=== PATIENT | female | born 2005 | race Caucasian/White ===

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

== ENCOUNTER 2024-06-11 07:57 | Emergency (ER) | payer OTHER ==
[2024-06-11 08:01] VITALS: RESP 18
--- NOTE | 2024-06-11 08:39 | ED ---
General Adult HPI - General Chief complaint: Upper Respiratory Infection Stated complaint: vomiting,cough Time Seen by Provider: 06/11/24 08:33 Source: patient, RN notes reviewed, old records reviewed Mode of arrival: ambulatory Limitations: no limitations - History of Present Illness Initial comments: 18-year-old female approximately 29 weeks gestation presenting to the ER for evaluation of sore throat and nausea. Patient reports since Friday she has been feeling nauseous with multiple episodes of vomiting. Throughout the week she has been unable to keep food or liquids down. She also was endorsing a sore throat and congestion. Patient states last night she was having difficulty keeping water down which prompted emergency department visit. She denies any coffee-ground emesis or hematemesis. She has tried which she believes is nuba-iir-finospv aspirin as instructed by [facility] without relief of symptoms. She denies any dizziness, lightheadedness, abdominal pain/cramping, back pain, vaginal bleeding or discharge. No chest pain, shortness of breath, wheezing, difficulty breathing or other complaints at this time. Patient is follow-up with Dr. Gipson. - Related Data Home Medications Medication Instructions Recorded Confirmed Labetalol [Trandate] 100 mg PO BID 09/14/23 09/14/23 Allergies Allergy/AdvReac Type Severity Reaction Status Date / Time No Known Allergies Allergy Verified 06/11/24 08:01 Review of Systems ROS Statement: Those systems with pertinent positive or pertinent negative responses have been documented in the HPI. ROS Other: All systems not noted in ROS Statement are negative. Past Medical History Past Medical History: No Reported History Additional Past Medical History / Comment(s): Obstetric history: This patient's first and she had care with Dr. huong carrera. Blood type is O+, antibodies negative, rubella immune, hepatitis B negative, GBS positive, HIV nonreactive History of Any Multi-Drug Resistant Organisms: None Reported Past Surgical History: Orthopedic Surgery Additional Past Surgical History / Comment(s): lt arm Past Psychological History: No Psychological Hx Reported Smoking Status: Never smoker Past Alcohol Use History: None Reported Past Drug Use History: Marijuana General Exam Limitations: no limitations General appearance: alert, in no apparent distress ENT exam: Present: normal exam, mucous membranes moist (Mild erythema oropharynx), TM's normal bilaterally Neck exam: Present: normal inspection. Absent: tenderness, meningismus, lymphadenopathy Respiratory exam: Present: normal lung sounds bilaterally. Absent: respiratory distress, wheezes, rales, rhonchi, stridor Cardiovascular Exam: Present: regular rate, normal rhythm, normal heart sounds. Absent: systolic murmur, diastolic murmur, rubs, gallop, clicks GI/Abdominal exam: Present: soft, normal bowel sounds, other (Gravid abdomen. No focal tenderness). Absent: distended, tenderness, guarding, rebound, rigid Neurological exam: Present: alert, oriented X3, CN II-XII intact Skin exam: Present: warm, dry, intact, normal color. Absent: rash Course Vital Signs 06/11/24 06/11/24 07:59 10:55 Temperature 97.9 F 98.1 F Pulse Rate 108 H 100 Respiratory 18 18 Rate Blood Pressure 126/79 128/81 O2 Sat by Pulse 99 99 Oximetry Medical Decision Making - Medical Decision Making Was pt. sent in by a medical professional or institution (, PA, SENIOR CAPITAL MARKETS SPECIALIST, urgent care, hospital, or half-way...) When possible be specific @ -No Did you speak to anyone other than the patient for history (EMS, parent, family, police, friend...)? What history was obtained from this source @ -No Did you review nursing and triage notes (agree or disagree)? Why? @ -I reviewed and agree with nursing and triage notes Were old charts reviewed (outside hosp., previous admission, EMS record, old EKG, old radiological studies, urgent care reports/EKG's, half-way records)? Report findings @ -No old charts were reviewed Differential Diagnosis (chest pain, altered mental status, abdominal pain women, abdominal pain men, vaginal bleeding, weakness, fever, dyspnea, syncope, headache, dizziness, GI bleed, back pain, seizure, CVA, palpatations, mental health, musculoskeletal)? @ -COVID, RSV, influenza, viral sinusitis, pneumonia, strep pharyngitis, this list is not meant to be all-inclusive EKG interpreted by me (3pts min.). @ -None done X-rays interpreted by me (1pt min.). @ -None done CT interpreted by me (1pt min.). @ -None done U/S interpreted by me (1pt. min.). @ -None done What testing was considered but not performed or refused? (CT, X-rays, U/S, labs)? Why? @ -CXR considered but not performed given patient's status. Patient is agreeable. What meds were considered but not given or refused? Why? @ -None Did you discuss the management of the patient with other professionals (professionals i.e. , PA, SENIOR [employer]ITAL MARKETS SPECIALIST, lab, RT, psych nurse, health social work professor, accountant helper, teacher, tactical debriefer officer, case management associate)? Give summary @ -No Was smoking cessation discussed for >3mins.? @ -No Was critical care preformed (if so, how long)? @ -No Were there social determinants of health that impacted care today? How? (Homelessness, low income, unemployed, alcoholism, drug addiction, transportation, low edu. Level, literacy, decrease access to med. care, care home, rehab)? @ -No Was there de-escalation of care discussed even if they declined (Discuss DNR or withdrawal of care, Hospice)? DNR status @ -No What co-morbidities impacted this encounter? (DM, HTN, Smoking, COPD, CAD, Cancer, CVA, ARF, Chemo, Hep., AIDS, mental health diagnosis, sleep apnea, mo rbid obesity)? @ - Was patient admitted / discharged? Hospital course, mention meds given and route, prescriptions, significant lab abnormalities, going to OR and other pertinent info. @ -Discharge. 18-year-old female approximately 29 weeks gestation presenting to the ER for evaluation of sore throat and nausea. Upon rooming, history and physical exam completed. Vitals within acceptable limits. Patient had no signs of acute distress nontoxic-appearing. Workup obtained in the ER significant for COVID. Urinalysis with occasional bacteria sample is contaminated with epi thelial cells. Patient would like culture results prior to antibiotic initiation. Hemoglobin 10.4 likely due to . Patient given IV fluids and Zofran for symptom control in the ER. heart tones performed by labor and delivery ranging from 130s to 150s bpm. Patient denying any obstetrical complaints. Patient is stable for discharge at this time. Strict return parameters discussed. I advised asfi-tix-neisaxm Tylenol for symptom control outpatient. Strict return parameters discussed. Patient discharged in stable condition with follow-up to [facility]. Patient verbally expressed understanding and agreement with care plan. Case discussed with ED attending, Dr. Lindquist. Undiagnosed new problem with uncertain prognosis? @ -No Drug Therapy requiring intensive monitoring for toxicity (Heparin, Nitro, Insulin, Cardizem)? @ -No Were any procedures done? @ -No Diagnosis/symptom? @ -COVID-19/acute viral sinusitis Acute, or Chronic, or Acute on Chronic? @ -Acute Uncomplicated (without systemic symptoms) or Complicated (systemic symptoms)? @ -Uncomplicated Side effects of treatment? @ -No Exacerbation, Progression, or Severe Exacerbation? @ -No Poses a threat to life or bodily function? How? (Chest pain, USA, VT, pneumonia, PE, COPD, DKA, ARF, appy, cholecystitis, CVA, Diverticulitis, Homicidal, Suicidal, threat to staff... and all critical care pts) @ -No - Lab Data Result diagrams: 06/11/24 08:51 06/11/24 08:51 Lab Results 06/11/24 06/11/24 06/11/24 Range/Units 08:08 08:51 08:51 WBC 10.9 (4.0-11.0) k/uL RBC 3.98 (3.80-5.40) m/uL Hgb 10.4 L (11.4-16.0) gm/dL Hct 33.3 L (34.0-46.0) % MCV 83.7 (80.0-100.0) fL MCH 26.0 (25.0-35.0) pg MCHC 31.1 (31.0-37.0) g/dL RDW 13.3 (11.5-15.5) % Plt Count 260 (150-450) k/uL MPV 8.1 Neutrophils % 88 % Lymphocytes % 5 % Monocytes % 5 % Eosinophils % 1 % Basophils % 0 % Neutrophils # 9.6 H (1.3-7.7) k/uL Lymphocytes # 0.6 L (1.0-4.8) k/uL Monocytes # 0.5 (0-1.0) k/uL Eosinophils # 0.1 (0-0.7) k/uL Basophils # 0.0 (0-0.2) k/uL Hypochromasia Slight Sodium 133 L (137-145) mmol/L Potassium 4.3 (3.5-5.1) mmol/L Chloride 104 (98-107) mmol/L Carbon Dioxide 22 (22-30) mmol/L Anion Gap 7 mmol/L BUN 7 (7-17) mg/dL Creatinine 0.50 L (0.52-1.04) mg/dL Est GFR (CKD-EPI)AfAm >90 (>60 ml/min/1.73 sqM) Est GFR (CKD-EPI)NonAf >90 (>60 ml/min/1.73 sqM) Glucose 95 (74-99) mg/dL Plasma Lactic Acid Sushant (0.7-2.0) mmol/L Calcium 8.8 (8.4-10.2) mg/dL Total Bilirubin 0.3 (0.2-1.3) mg/dL AST 28 (14-36) U/L ALT 14 (4-34) U/L Alkaline Phosphatase 148 H (38-126) U/L Total Protein 6.7 (6.3-8.2) g/dL Albumin 3.3 L (3.5-5.0) g/dL Urine Color Urine Appearance (Clear) Urine pH (5.0-8.0) Ur Specific [place] (1.001-1.035) Urine Protein (Negative) Urine Glucose (UA) (Negative) Urine Ketones (Negative) Urine Blood (Negative) Urine Nitrite (Negative) Urine Bilirubin (Negative) Urine Urobilinogen (<2.0) mg/dL Ur Leukocyte Esterase (Negative) Urine RBC (0-5) /hpf Urine WBC (0-5) /hpf Ur Squamous Epith Cells (0-4) /hpf Urine Bacteria (None) /hpf Urine Mucus (None) /hpf Influenza Type A (PCR) Not Detected (Not Detectd) Influenza Type B (PCR) Not Detected (Not Detectd) RSV (PCR) Not Detected (Not Detectd) SARS-CoV-2 (PCR) Detected A (Not Detectd) Group A Strep (PCR) (Not Detectd) 06/11/24 06/11/24 06/11/24 Range/Units 08:51 08:51 10:09 WBC (4.0-11.0) k/uL RBC (3.80-5.40) m/uL Hgb (11.4-16.0) gm/dL Hct (34.0-46.0) % MCV (80.0-100.0) fL MCH (25.0-35.0) pg MCHC (31.0-37.0) g/dL RDW (11.5-15.5) % Plt Count (150-450) k/uL MPV Neutrophils % % Lymphocytes % % Monocytes % % Eosinophils % % Basophils % % Neutrophils # (1.3-7.7) k/uL Lymphocytes # (1.0-4.8) k/uL Monocytes # (0-1.0) k/uL Eosinophils # (0-0.7) k/uL Basophils # (0-0.2) k/uL Hypochromasia Sodium (137-145) mmol/L Potassium (3.5-5.1) mmol/L Chloride (98-107) mmol/L Carbon Dioxide (22-30) mmol/L Anion Gap mmol/L BUN (7-17) mg/dL Creatinine (0.52-1.04) mg/dL Est GFR (CKD-EPI)AfAm (>60 ml/min/1.73 sqM) Est GFR (CKD-EPI)NonAf (>60 ml/min/1.73 sqM) Glucose (74-99) mg/dL Plasma Lactic Acid Sushant 0.8 (0.7-2.0) mmol/L Calcium (8.4-10.2) mg/dL Total Bilirubin (0.2-1.3) mg/dL AST (14-36) U/L ALT (4-34) U/L Alkaline Phosphatase (38-126) U/L Total Protein (6.3-8.2) g/dL Albumin (3.5-5.0) g/dL Urine Color Yellow Urine Appearance Cloudy H (Clear) Urine pH 7.5 (5.0-8.0) Ur Specific [place] 1.022 (1.001-1.035) Urine Protein Trace H (Negative) Urine Glucose (UA) Negative (Negative) Urine Ketones Negative (Negative) Urine Blood Negative (Negative) Urine Nitrite Negative (Negative) Urine Bilirubin Negative (Negative) Urine Urobilinogen <2.0 (<2.0) mg/dL Ur Leukocyte Esterase Moderate H (Negative) Urine RBC 1 (0-5) /hpf Urine WBC 10 H (0-5) /hpf Ur Squamous Epith Cells 13 H (0-4) /hpf Urine Bacteria Occasional H (None) /hpf Urine Mucus Rare H (None) /hpf Influenza Type A (PCR) (Not Detectd) Influenza Type B (PCR) (Not Detectd) RSV (PCR) (Not Detectd) SARS-CoV-2 (PCR) (Not Detectd) Group A Strep (PCR) NOT DETECTED (Not Detectd) Disposition Clinical Impression: COVID-19, Acute viral sinusitis Disposition: HOME SELF-CARE Condition: Stable Additional Instructions: You may take [id number] Tylenol for symptom control. Follow-up with [facility]. Return to the ER for any new or worsening concerns. Is patient prescribed a controlled substance at d/c from ED?: No Referrals: Douglas Schultz DO [Primary Care Provider] - 1-2 days Charlie Muniz MD [STAFF PHYSICIAN] - 1-2 days Time of Disposition: 10:37
[2024-06-11 09:03] LABS: Basophils % (A) 0 %; Eosinophils # (A) 0.1 k/uL (0-0.7); Eosinophils % (A) 1 %; HCT 33.3 % (34.0-46.0); HGB 10.4 gm/dL (11.4-16.0); Hypochromasia Slight; Lymphocytes # (A) 0.6 k/uL (1.0-4.8); Lymphocytes % (A) 5 %; MCHC 31.1 g/dL (31.0-37.0); MCV 83.7 fL (80.0-100.0); Mean Platelet Volume 8.1; Monocytes # (A) 0.5 k/uL (0-1.0); Monocytes % (A) 5 %; Neutrophils # (A) 9.6 k/uL (1.3-7.7); Neutrophils % (A) 88 %; Platelet Count 260 k/uL (150-450); RBC 3.98 m/uL (3.80-5.40); RDW 13.3 % (11.5-15.5); WBC 10.9 k/uL (4.0-11.0)
[2024-06-11 09:03] LABS: Influenza A Not Detected (Not Detectd); Influenza B Not Detected (Not Detectd); RSV Not Detected (Not Detectd)
[2024-06-11 09:18] LABS: ALT 14 U/L (4-34); AST 28 U/L (14-36); African American GFR (CKD) >90 (>60 ml/min/1.73 sqM); Albumin 3.3 g/dL (3.5-5.0); Alkaline Phosphatase 148 U/L (38-126); Anion Gap 7 mmol/L; Blood Urea Nitrogen 7 mg/dL (7-17); Calcium 8.8 mg/dL (8.4-10.2); Carbon Dioxide 22 mmol/L (22-30); Chloride 104 mmol/L (98-107); Glucose 95 mg/dL (74-99); Non-African American GFR(CKD) >90 (>60 ml/min/1.73 sqM); Potassium 4.3 mmol/L (3.5-5.1); Sodium 133 mmol/L (137-145); Total Bilirubin 0.3 mg/dL (0.2-1.3); Total Protein 6.7 g/dL (6.3-8.2)
[2024-06-11] MEDS: ONDANSETRON 4 MG/2 ML VIAL IVP STA (09:37)
[2024-06-11] MEDS: SODIUM CHLORIDE 0.9% 1,000 ML IV ONE (09:37)
[2024-06-11 10:18] LABS: Appearance,Urine Cloudy (Clear); Bacteria,Urine Occasional /hpf; Bilirubin,Urine Negative (Negative); Blood,Urine Negative (Negative); Color,Urine Yellow; Glucose,Urine (UA) Negative (Negative); Ketones,Urine Negative (Negative); Leukocyte Esterase,Urine Moderate (Negative); Mucus,Urine Rare /hpf; Nitrite,Urine Negative (Negative); PH, Urine 7.5 (5.0-8.0); Protein,Urine Trace (Negative); RBC,Urine 1 /hpf (0-5); Specific Gravity,Urine 1.022 (1.001-1.035); Squamous Epithelial Cell,Urine 13 /hpf (0-4); Urobilinogen,Urine <2.0 mg/dL (<2.0); WBC,Urine 10 /hpf (0-5)
[2024-06-11 10:57] VITALS: BP 128/81; PULSE 100; TEMP 98.1
== END 2024-06-11 10:59 | disposition home or self-care (01) ==
LOC: EC 07:57
DX: O98.513 Other viral diseases complicating pregnancy, third trimester (principal); U07.1 COVID-19; O99.513 Diseases of the respiratory system complicating pregnancy, third trimester; J01.90 Acute sinusitis, unspecified; O99.820 Streptococcus B carrier state complicating pregnancy; Z3A.29 29 weeks gestation of pregnancy
CPT/HCPCS: 99284; 96374; 96361; 36415; 87651; 80053; 83605; 85025; 81001; 87086; 87636; J2405

== ENCOUNTER 2024-08-03 22:50 | Outpatient (CLI) | payer OTHER ==
[2024-08-04 00:02] VITALS: BP 118/81; PULSE 114; RESP 16; TEMP 97.4
--- NOTE | 2024-08-14 11:24 | P.MSEPDOC ---
Presenting Problems - Arrival Data Date of Arrival on Unit: 08/03/24 Time of Arrival on Unit: 23:50 Mode of Transport: Ambulatory - Complaint OB-Reason for Admission/Chief Complaint: Decreased Movement Comment: PT presents to triage withc/o decreased movement. States she saw her home nurse today who advised her to be seen if she still isn't feeling baby move Medical History - Information : 2 Para: 1 Term: 1 : 0 Abortions: Spontaneous or Elective: 0 Number of Living Children: 1 - Gestational Age Gestational Age by ROBIN (wks/days): 37 Weeks and 0 Days Review of Systems - Review of Systems Constitutional: No problems Breast: No problems ENT: No problems Cardiovascular: No problems Respiratory: No problems Gastrointestinal: No problems Genitourinary: No problems Musculoskeletal: No problems Neurological: No problems Skin: No problems Vital Signs - Temperature Temperature: 97.4 F Temperature Source: Temporal Artery Scan - Pulse Pulse Oximetery Pulse Rate: 114 Pulse Assessment Method: Pulse Oximetry - Respirations Respiratory Rate: 16 Oxygen Delivery Method: Room Air O2 Sat by Pulse Oximetry: 97 - Blood Pressure Right Arm Blood Pressure: 118/81 Blood Pressure Mean: 93 Blood Pressure Source: Automatic Cuff Medical Screen Scoring - Assessment - Baby A Baseline FHR: 140 Heart Rate - NICHD Category: Category I (Normal) NST: Reactive Physician Notification - Physician Notified Physician Notified Date: 08/03/24 Physician Notified Time: 23:15 Physician: Peg New Order Received: Yes - Notification Comment Comment: Spoke with Dr. Ruvalcaba, Pt of his, 37 weeks 0 days. Presents with c/o decreased movement. NST reactive with CAT 1 tones. PT feeling positive movement since in triage. No cx on monitor, vitals stable. Order to D/C home Maternal Triage Index - Maternal Triage Index Presenting for scheduled procedure w/no complaint: No - Stat/Priority 1 Stat Priority 1: No - Urgent/Priority 2 Urgent Priority 2: Yes Provider Notified: Peg Provider Notified Time: 23:15 Criteria Met for Priority 2: PT presents to triage withc/o decreased movement. States she saw her home nurse today who advised her to be seen if she still isn't feeling baby move Disposition - Disposition OB Disposition: Discharge to home Discharge Date: 08/03/24 Discharge Time: 23:17 I agree with the RN Medical Screening Exam: Yes Physician's MSE Comment: I have neither seen nor examined the patient. Case reviewed; plan agreed upon as documented in EMR&OBIX.: Yes Diagnosis: RELATED CONDITIONS, UNSPECIFIED, THIRD TRIMESTER
== END 2024-08-03 23:17 | disposition home or self-care (01) ==
LOC: FBPOP 22:50
PROVIDERS: ATTEND Obstetrics & Gynecology
DX: O26.893 Other specified pregnancy related conditions, third trimester (principal); Z3A.37 37 weeks gestation of pregnancy
CPT/HCPCS: 36415; 59025; 99213

== ENCOUNTER 2024-08-15 18:56 | Outpatient (CLI) | payer OTHER ==
[2024-08-15 20:46] VITALS: BP 123/64; PULSE 92; RESP 16; TEMP 97.7
--- NOTE | 2024-09-04 11:28 | P.MSEPDOC ---
Presenting Problems - Arrival Data Date of Arrival on Unit: 08/15/24 Time of Arrival on Unit: 19:00 Mode of Transport: Ambulatory - Complaint OB-Reason for Admission/Chief Complaint: Possible Onset of Labor Comment: pt presents for possible ctx's, headache and spotting in vision yesterday Medical History - Information : 2 Para: 1 Term: 1 : 0 Abortions: Spontaneous or Elective: 0 Number of Living Children: 1 - Gestational Age Gestational Age by ROBIN (wks/days): 38 Weeks and 5 Days Review of Systems - Review of Systems Constitutional: No problems Breast: No problems ENT: No problems Cardiovascular: No problems Respiratory: No problems Gastrointestinal: No problems Genitourinary: No problems Musculoskeletal: No problems Neurological: No problems Skin: No problems Vital Signs - Temperature Temperature: 97.7 F Temperature Source: Temporal Artery Scan - Pulse Pulse Oximetery Pulse Rate: 92 Pulse Assessment Method: Pulse Oximetry - Respirations Respiratory Rate: 16 Oxygen Delivery Method: Room Air O2 Sat by Pulse Oximetry: 99 - Blood Pressure Sitting Blood Pressure: 123/64 Blood Pressure Mean: 83 Blood Pressure Source: Automatic Cuff Medical Screen Scoring - Cervical Exam Dilation (cm): 2 Effacement (%): 60 Station: -4 Membranes: Intact - Uterine Contractions Intensity: Mild Resting: Soft to palpation - Assessment - Baby A Baseline FHR: 120 Heart Rate - NICHD Category: Category I (Normal) NST: Reactive Physician Notification - Physician Notified Physician Notified Date: 08/15/24 Physician Notified Time: 19:00 Physician: Charlie Muniz Order Received: Yes - Notification Comment Comment: Call placed to Dr Muniz. Report given of patient c/o contractions, sve 2/60/high, cat 1 strip, no change with recheck. Orders received to discharge patient home, patient is scheduled for IOL on Friday Maternal Triage Index - Maternal Triage Index Presenting for scheduled procedure w/no complaint: No - Stat/Priority 1 Stat Priority 1: No - Urgent/Priority 2 Urgent Priority 2: No - Prompt/Priority 3 Prompt Priority 3: No - Non-Urgent/Priority 4 Non-Urgent Priority 4: Yes Criteria Met for Priority 4: pt presents for possible ctx's, headache and spotting in vision yesterday Disposition - Disposition OB Disposition: Discharge to home Discharge Date: 08/15/24 Discharge Time: 20:30 I agree with the RN Medical Screening Exam: Yes Physician's MSE Comment: I have neither seen nor examined the patient. Case reviewed; plan agreed upon as documented in EMR&OBIX.: Yes Diagnosis: RELATED CONDITIONS, UNSPECIFIED, THIRD TRIMESTER
== END 2024-08-15 20:30 ==
LOC: FBPOP 18:56
PROVIDERS: ATTEND Obstetrics & Gynecology
DX: O26.893 Other specified pregnancy related conditions, third trimester (principal); Z3A.38 38 weeks gestation of pregnancy
CPT/HCPCS: 59025; 99213

== ENCOUNTER 2024-08-18 05:50 | Inpatient (IN) | payer OTHER ==
[2024-08-18] MEDS ORDERED: miSOPROStoL 200 MCG TAB PO PRN (05:58)
[2024-08-18] MEDS ORDERED: METHYLERGONOVINE 0.2 MG/ML 1 ML AMP IM PRN (05:58)
[2024-08-18] MEDS ORDERED: TERBUTALINE 1 MG/ML VIAL SQ PRN (05:58)
[2024-08-18] MEDS ORDERED: LIDOCAINE 0.5% (PF) 5 MG/ML (50 ML SDV) SQ PRN (05:58)
[2024-08-18] MEDS ORDERED: CARBOPROST TROMETHAMINE 250 MCG/ML 1 ML AMP IM PRN (05:58)
[2024-08-18] MEDS ORDERED: OXYTOCIN 10 UNIT/ML 1 ML VIAL IM PRN (05:58)
[2024-08-18] MEDS ORDERED: miSOPROStoL 200 MCG TAB RECTAL PRN (05:58)
[2024-08-18] MEDS ORDERED: TRANEXAMIC 1,000 MG/100ML-NACL 1,000 MG in EMPTY BAG 1 BAG IV PRN (05:58)
[2024-08-18] MEDS: LACTATED RINGERS 1,000 ML IV SCH (06:43)
[2024-08-18] MEDS: OXYTOCIN 30 UNITS/500 ML NS 30 UNIT in SALINE 1 500ML.BAG IV SCH (06:54)
[2024-08-18 07:19] LABS: Basophils # (A) 0.04 10*3/uL (0.00-0.10); Basophils % (A) 0.3 %; Eosinophils # (A) 0.07 10*3/uL (0.04-0.35); Eosinophils % (A) 0.5 %; HCT 30.2 % (37.2-46.3); HGB 9.3 g/dL (12.0-15.0); Lymphocytes # (A) 2.54 10*3/uL (0.90-5.00); Lymphocytes % (A) 19.6 %; MCH 23.2 pg (27.0-32.0); MCHC 30.8 g/dL (32.0-37.0); MCV 75.3 fL (80.0-97.0); Mean Platelet Volume 11.2 fL (9.5-12.2); Monocytes # (A) 0.73 10*3/uL (0.20-1.00); Monocytes % (A) 5.6 %; Neutrophils % (A) 73.3 %; Platelet Count 279 10*3/uL (140-440); RBC 4.01 10*6/uL (4.10-5.20); RDW 14.9 % (11.5-14.5); WBC 12.97 10*3/uL (4.50-10.00)
[2024-08-18] MEDS ORDERED: BUTORPHANOL 1 MG/ML 1 ML VIAL IV PRN (09:28)
--- NOTE | 2024-08-18 09:32 | P.HPOB ---
History of Present Illness H&P Date: 08/18/24 Chief Complaint: 39+ weeks, elective induction The patient is a 18-year-old 2 para 1-0-0-1 admitted at 39+ weeks as established by last menstrual period. She is admitted for an elective induction with all signs reassuring, category 1 heart rate tracing. Her has been uncomplicated and group B strep status is negative. Obstetrical history: 2 para 1-0-0-1 with 1 term vaginal delivery. Current statistics are listed in history of present illness. EDC of 08/24/2024 was established by last menstrual period and confirmed by 10-week ultrasound. Laboratory workup demonstrates a blood type of O+ with a negative antibody screen. This is immune. The within normal limits. 1 hour Glucola was normal and group B strep status is negative. Gynecologic history: Unremarkable with no history of any infections to include STDs. Review of Systems Review of systems is confined to history of present illness. Past Medical History Past Medical History: No Reported History Additional Past Medical History / Comment(s): Obstetric history: This patient's first and she had care with Dr. huong carrera. Blood type is O+, antibodies negative, rubella immune, hepatitis B negative, GBS positive, HIV nonreactive History of Any Multi-Drug Resistant Organisms: None Reported Past Surgical History: Orthopedic Surgery Additional Past Surgical History / Comment(s): lt arm Past Anesthesia/Blood Transfusion Reactions: No Reported Reaction Past Psychological History: No Psychological Hx Reported Smoking Status: Former smoker Past Alcohol Use History: None Reported Past Drug Use History: Marijuana Additional Drug Use History / Comment(s): no drug use during preg. hx of THC Medications and Allergies Home Medications Medication Instructions Recorded Confirmed Type Vit No.179/Iron/Folic 1 tab PO DAILY 08/03/24 History [ Tablet] Allergies Allergy/AdvReac Type Severity Reaction Status Date / Time No Known Allergies Allergy Verified 08/03/24 23:01 Exam Vital Signs Temp Pulse Resp BP Pulse Ox 08/18/24 05:55 97.4 F L 107 H 18 125/62 99 Intake and Output 08/17/24 08/18/24 08/18/24 22:59 06:59 14:59 Other: # Voids 1 Weight 89.811 kg In general, this is a well-developed, well-nourished white female in no acute distress. Her heart has a regular rhythm and rate without murmur. Her lungs are clear to auscultation bilaterally in all rush. Her abdomen is gravid, nondistended, has normal active bowel sounds, is soft, nontender, and without any palpable masses aside from uterine fundus. Her extremities are without any cyanosis, clubbing, or edema and are nontender to palpation bilaterally. Digital cervical examination demonstrates her cervix to be 3 cm dilated, 50% effaced, with the vertex and presentation at -2 station. Artificial rupture of membranes is carried out demonstrating clear fluid. Results Result Diagrams: 08/18/24 07:00 Abnormal Lab Results - Last 24 Hours (Table) 08/18/24 Range/Units 07:00 WBC 12.97 H (4.50-10.00) 10*3/uL RBC 4.01 L (4.10-5.20) 10*6/uL Hgb 9.3 L (12.0-15.0) g/dL Hct 30.2 L (37.2-46.3) % MCV 75.3 L (80.0-97.0) fL MCH 23.2 L (27.0-32.0) pg MCHC 30.8 L (32.0-37.0) g/dL Immature Gran # 0.09 H (0.00-0.04) 10*3/uL Neutrophils # 9.50 H (1.80-7.70) 10*3/uL Assessment and Plan (1) Term Current Visit: Yes Status: Acute Code(s): Z34.90 - ENCNTR FOR SUPRVSN OF NORMAL , UNSP, UNSP TRIMESTER SNOMED Code(s): 66421030 Plan: For elective induction of labor. Pitocin augmentation started and she has undergone artificial rupture of membranes. She will have close maternal and surveillance and expectant management will be practiced. She is a good candidate for either IV or epidural analgesia, which ever she may choose.
[2024-08-18] MEDS ORDERED: SODIUM CHLORIDE 0.9% 250 ML BAG ONE (11:29)
[2024-08-18] MEDS ORDERED: ROPIVACAINE 5 MG/ML 30 ML VIAL ONE (11:29)
[2024-08-18] MEDS ORDERED: fentaNYL (PF) 50 MCG/ML 5 ML AMP ONE (11:29)
[2024-08-18] MEDS ORDERED: diphenhydrAMINE 25 MG CAP PO PRN (14:06)
[2024-08-18] MEDS ORDERED: ZOLPIDEM 5 MG TAB PO PRN (14:06)
[2024-08-18] MEDS ORDERED: HYDROCORTISONE 2.5% RECTAL CREAM 30 GM TUBE RECTAL PRN (14:06)
[2024-08-18] MEDS ORDERED: SIMETHICONE 80 MG CHEWABLE PO PRN (14:06)
[2024-08-18] MEDS ORDERED: diphenhydrAMINE 50 MG/ML 1 ML VIAL IVP PRN ×2 (14:06)
[2024-08-18] MEDS ORDERED: LANOLIN CREAM 1 GM TUBE TOPICAL PRN (14:06)
[2024-08-18] MEDS ORDERED: BENZOCAINE/MENTHOL SPRAY 1 GM/SPRAY AEROSOL TOPICAL PRN (14:06)
[2024-08-18] MEDS ORDERED: diphenhydrAMINE 50 MG CAP PO PRN (14:06)
--- NOTE | 2024-08-18 14:10 | P.PROBDLV ---
Vaginal Delivery Note - . Vaginal Delivery Note: Date of service/delivery: 08/18/2024 The patient is a 18-year-old 2 para 1-0-0-1 admitted at 39 and 1 sevenths weeks as established by good dating parameters. She is admitted for elective signs reassuring, category 1 heart rate tracing. Her has been uncomplicated and group B strep status is negative. On labor and delivery, augmentation was started followed by artificial rupture of membranes for clear fluid progress to the active phase of labor and then had an epidural catheter placed for analgesia. She progressed fairly quickly through the active phase of labor to complete and then pushed over the course of approximately 45 minutes to a normal spontaneous vaginal delivery of a viable 7 pound 6 ounce baby girl with Apgars of 9 at 1 minute and 10 at 5 minutes delivered in the direct occiput anterior position. The placenta was delivered spontaneously, intact, and grossly normal with a grossly normal, centrally inserted three- vessel cord. There were no lacerations of the perineum, vagina, or cervix. Estimated blood loss for the case was approximate 100 mL or less. There were no complications. All sponge, instrument, and needle counts were correct. Both mother and infant are resting comfortably in recovery.
[2024-08-18] MEDS ORDERED: OXYTOCIN 30 UNITS/500 ML NS 30 UNIT in SALINE 1 500ML.BAG IV SCH (14:15)
[2024-08-18] MEDS: ACETAMINOPHEN TAB 500 MG TAB PO PRN (20:57)
[2024-08-18] MEDS: SENNOSIDES-DOCUSATE SODIUM 1 EACH TAB PO SCH (20:57)
[2024-08-19 06:34] LABS: Basophils # (A) 0.05 10*3/uL (0.00-0.10); Basophils % (A) 0.3 %; Eosinophils # (A) 0.03 10*3/uL (0.04-0.35); Eosinophils % (A) 0.2 %; HCT 28.5 % (37.2-46.3); HGB 8.8 g/dL (12.0-15.0); Lymphocytes # (A) 2.18 10*3/uL (0.90-5.00); MCH 23.2 pg (27.0-32.0); MCHC 30.9 g/dL (32.0-37.0); MCV 75.2 fL (80.0-97.0); Mean Platelet Volume 11.2 fL (9.5-12.2); Monocytes # (A) 0.94 10*3/uL (0.20-1.00); Neutrophils # (A) 12.22 10*3/uL (1.80-7.70); Neutrophils % (A) 78.6 %; Platelet Count 243 10*3/uL (140-440); RBC 3.79 10*6/uL (4.10-5.20); RDW 15.1 % (11.5-14.5); WBC 15.56 10*3/uL (4.50-10.00)
[2024-08-19] MEDS: IBUPROFEN 800 MG TAB PO PRN (08:01)
--- NOTE | 2024-08-19 08:45 | P.DS ---
Providers Date of admission: 08/18/24 05:50 Expected date of discharge: 08/19/24 Attending physician: Charlie Muniz Primary care physician: Stated None - Discharge Diagnosis(es) (1) Term Current Visit: Yes Status: Acute (2) Normal spontaneous vaginal delivery Current Visit: Yes Status: Acute Hospital Course: The patient is a 18-year-old 2 para 1 admitted at 39+ weeks by good dating parameters elective induction with all signs reassuring, category 1 heart rate tracing. was uncomplicated and group B strep status is negative. On labor and delivery, she had Pitocin started followed by artificial rupture of membranes. She later had an epidural catheter placed for analgesia. She progressed fairly quickly through the active phase of labor to complete and pushed to a normal spontaneous vaginal delivery of a viable 7 pound 6 ounce baby girl with Apgars of 9 at 1 minute and 10 at 5 minutes. Her course was unremarkable with vital signs remaining stable and her temperature was afebrile throughout. She was deemed stable for discharge on day #1 and was discharged home to follow-up in the office in 6 weeks time routinely. Discharge instructions included calling for any significantly increased bleeding or foul-smelling lochia, sick fever or abdominal pain, perineal complaints, breast complaints, or anything else that concerned her. She was additionally instructed to have nothing in the vagina for at least 6 weeks time to include intercourse. She understood her instructions and agrees to follow-up as noted above. Discharge medications included continued vitamins as she has opted to breast-feed. She was otherwise to use [id number] analgesic pain medications. maternal blood type is O+ and rubella status is immune. Procedures: #1. Pitocin induction #2. Artificial rupture of membranes #3. Spontaneous vaginal delivery Plan - Discharge Summary New Discharge Prescriptions: No Action Vit No.179/Iron/Folic [ Tablet] 1 tab PO DAILY Discharge Medication List Vit No.179/Iron/Folic [ Tablet] 1 tab PO DAILY 08/03/24 [History] Follow up Appointment(s)/Referral(s): Charlie Muniz MD [STAFF PHYSICIAN] - 09/28/24 11:15 am Discharge Disposition: HOME SELF-CARE
[2024-08-19 10:27] VITALS: BP 108/68; PULSE 89; RESP 16; TEMP 98.3
== END 2024-08-19 15:05 | disposition home or self-care (01) | DRG 807 ==
LOC: 4FBP 05:50
PROVIDERS: ADMIT Obstetrics & Gynecology; ATTEND Obstetrics & Gynecology
PROC: 10E0XZZ Delivery of Products of Conception, External Approach (ICD-10-PCS; principal; 2024-08-18)
PROC: 10907ZC Drainage of Amniotic Fluid, Therapeutic from Products of Conception, Via Natural or Artificial Opening (ICD-10-PCS; 2024-08-18)
PROC: 3E033VJ Introduction of Other Hormone into Peripheral Vein, Percutaneous Approach (ICD-10-PCS; 2024-08-18)
DX: O80 Encounter for full-term uncomplicated delivery (principal); Z37.0 Single live birth; Z3A.39 39 weeks gestation of pregnancy; Z87.891 Personal history of nicotine dependence
CPT/HCPCS: 85025; 86850; 86900; 86901